=== PATIENT | male | born 1965 | race African-American/Black ===

== ENCOUNTER 2018-11-14 20:45 | Emergency (ER) | payer MEDICAID, OTHER ==
[~2018-11-14] VITALS: Ht 185.4 cm; Wt 66.0 kg
[~2018-11-14 20:45] MED LIST: VAL5T PO
[2018-11-14 20:50] VITALS: BP 140/103
[2018-11-14] MEDS ORDERED: ACET-3067 PO (21:48)
[2018-11-14] MEDS ORDERED: VAL5T PO (21:48)
[2018-11-14] MEDS ORDERED: ketorolac trometh inj. 60 MG/2 ML VIAL IM ONE (21:50)
== END 2018-11-14 22:01 | disposition home or self-care (01) ==
LOC: ER 20:46
DX: M54.2 Cervicalgia (principal); Z79.899 Other long term (current) drug therapy
CPT/HCPCS: 96372; 99284; J1885